=== PATIENT | male | born 1990 | race Caucasian/White ===

== ENCOUNTER 2020-03-03 14:13 | Inpatient (IN) | payer MEDICAID ==
[~2020-03-03] VITALS: Ht 180.3 cm; Wt 108.6 kg
[2020-03-03] MEDS ORDERED: ACETAMINOPHEN 325 MG TABLET PO PRN (15:45)
[2020-03-03] MEDS ORDERED: MAG HYDROX/AL HYDROX/SIMETH ES 30 ML SUSPENSION UDCUP PO PRN (15:45)
[2020-03-03] MEDS ORDERED: PROMETHAZINE HCL 25 MG TABLET PO PRN (15:45)
[2020-03-03] MEDS ORDERED: LOPERAMIDE HCL 2 MG CAPSULE PO PRN (15:45)
[2020-03-03] MEDS ORDERED: TUBERCULIN, PURIFIED PROTEIN DERIVATIVE 5 TU/0.1 ML SYRINGE ID ONE (15:45)
[2020-03-03] MEDS ORDERED: HydrOXYzine PAMOATE 50 MG CAPSULE PO PRN (15:45)
[2020-03-03] MEDS ORDERED: GuaiFENesin/D-METHORPHAN [SUGAR-FREE] 200-20MG/10 ML SYRUP UDCUP PO PRN (15:45)
[2020-03-03] MEDS ORDERED: ZOLPIDEM TARTRATE 10 MG TABLET PO PRN (15:45)
[2020-03-03] MEDS ORDERED: OLANZapine 5 MG RAPDIS TABLET PO PRN (15:45)
[2020-03-03] MEDS ORDERED: MAGNESIUM HYDROXIDE SUSPENSION 30 ML UDCUP PO PRN (15:45)
[2020-03-03 16:23] VITALS: BP 144/87
[2020-03-03] MEDS: THIAMINE 100 MG TABLET PO SCH (18:04)
[2020-03-03] MEDS: LORazepam 2 MG TABLET PO PRN (18:04)
[2020-03-03] MEDS: ZIPRASIDONE HCL 40 MG CAPSULE PO SCH (18:34)
[2020-03-03] MEDS ORDERED: OLANZapine 5 MG RAPDIS TABLET PO SCH (21:00)
[2020-03-03] MEDS: LamoTRIgine 100 MG TABLET PO SCH (21:06)
[2020-03-03] MEDS: DiphenhydrAMINE HCL 25 MG CAPSULE PO SCH (21:06)
[2020-03-03 22:17] VITALS: BP 115/63
[2020-03-04 03:40] VITALS: BP 112/72
[2020-03-04] MEDS: ZIPRASIDONE HCL 40 MG CAPSULE PO SCH ×2 (06:46→17:01)
[2020-03-04 08:02] LABS: BASOPHILS % (AUTO) 0.5 % (0.0-2.0); EOSINOPHILS % (AUTO) 2.4 % (1.0-6.0); HEMATOCRIT 45.9 % (41-53); HEMOGLOBIN 15.5 g/dL (13.5-17.5); LYMPHOCYTES # (AUTO) 2.6 K/uL (1.0-4.8); MEAN CORPUSCULAR HGB CONC 33.7 G/dL (31.0-37.0); MEAN CORPUSCULAR VOLUME 86 fL (80-100); MONOCYTES # (AUTO) 0.7 K/uL (0.1-1.0); MONOCYTES % (AUTO) 8.8 % (2.0-9.0); NEUTROPHILS % (AUTO) 53.3 % (40.0-70.0); PLATELET COUNT (AUTO) 323 K/uL (150-450); RED BLOOD CELL COUNT(AUTO) 5.34 MIL/uL (4.50-5.90); RED CELL DISTRIBUTION WIDTH 13.1 % (11.5-14.5)
[2020-03-04 08:11] LABS: HEMOGLOBIN A1C 5.4 % (3.8-5.6)
[2020-03-04 08:29] LABS: ALANINE AMINOTRANSFERASE 27 U/L (12-78); ALBUMIN 4.8 g/dL (3.4-5.0); ALKALINE PHOSPHATASE 70 U/L (46-116); ANION GAP 7 mmol/L (8-16); ASPARTATE AMINOTRANSFERASE 14 U/L (15-37); BILIRUBIN,TOTAL 0.4 mg/dL (0.1-1.0); CALCIUM, TOTAL 9.5 mg/dL (8.8-10.5); CARBON DIOXIDE 26 mmol/L (22-29); CHLORIDE 103 mmol/L (98-107); CHOL/HDL RATIO 3.5 (4.2-7.3); CHOLESTEROL 163 mg/dL (131-200); CREATININE 0.94 mg/dL (0.60-1.30); FREE T4 (FREE THYROXINE) 1.43 ng/dL (0.76-1.46); GLOMERULAR FILTR. RATE CALC > 60 mL/min (>60); GLUCOSE,RANDOM 100 mg/dL (70-110); HDL CHOLESTEROL 47 mg/dL (40-60); LDL CHOL (CALC.) 102 mg/dL (0-130); POTASSIUM 3.6 mmol/L (3.5-5.1); SODIUM SERUM 136 mmol/L (136-145); THYROID STIMULATING HORMONE 0.65 uIU/mL (0.36-3.74); TOTAL PROTEIN, SERUM 8.2 g/dL (6.4-8.2); TRIGLYCERIDES 68 mg/dL (15-150); UREA NITROGEN, BLOOD 13 mg/dL (7-18)
[2020-03-04] MEDS: THIAMINE 100 MG TABLET PO SCH ×2 (08:43→17:01)
[2020-03-04] MEDS: BuPROPion HCL XL 150 MG ER TABLET PO SCH (08:43)
[2020-03-04] MEDS: FOLIC ACID 1 MG TABLET PO SCH (08:43)
[2020-03-04] MEDS: MULTIVITAMINS WITH MINERALS, THERAPEUTIC TABLET PO SCH (08:43)
[2020-03-04] MEDS ORDERED: CITALOPRAM HYDROBROMIDE 20 MG TABLET PO SCH (09:00)
[2020-03-04] MEDS ORDERED: CITALOPRAM HYDROBROMIDE 10 MG TABLET PO SCH (09:00)
[2020-03-04 13:02] VITALS: BP 108/68
[2020-03-04 16:26] VITALS: BP 126/89
[2020-03-04] MEDS: LORazepam 2 MG TABLET PO PRN (17:14)
[2020-03-04] MEDS: DiphenhydrAMINE HCL 25 MG CAPSULE PO SCH (21:00)
[2020-03-04] MEDS: LamoTRIgine 100 MG TABLET PO SCH (21:01)
[2020-03-05 05:31] VITALS: BP 130/94
[2020-03-05] MEDS: ZIPRASIDONE HCL 40 MG CAPSULE PO SCH ×2 (06:25→16:20)
[2020-03-05] MEDS: MULTIVITAMINS WITH MINERALS, THERAPEUTIC TABLET PO SCH (08:22)
[2020-03-05] MEDS: BuPROPion HCL XL 150 MG ER TABLET PO SCH (08:22)
[2020-03-05] MEDS: THIAMINE 100 MG TABLET PO SCH ×2 (08:22→16:40)
[2020-03-05] MEDS: FOLIC ACID 1 MG TABLET PO SCH (08:22)
[2020-03-05] MEDS: CITALOPRAM HYDROBROMIDE 20 MG TABLET PO SCH (08:23)
[2020-03-05 09:24] VITALS: BP 135/87
[2020-03-05 16:00] VITALS: BP 135/88
[2020-03-05] MEDS ORDERED: ZIPRASIDONE HCL 60 MG CAPSULE PO SCH (17:00)
[2020-03-05] MEDS: DiphenhydrAMINE HCL 25 MG CAPSULE PO SCH (20:21)
[2020-03-05] MEDS: LamoTRIgine 100 MG TABLET PO SCH (20:21)
[2020-03-06 06:26] VITALS: BP 136/84
[2020-03-06] MEDS ORDERED: ZIPRASIDONE HCL 60 MG CAPSULE PO SCH (07:00)
[2020-03-06 08:13] VITALS: BP 145/80
[2020-03-06] MEDS: FOLIC ACID 1 MG TABLET PO SCH (08:38)
[2020-03-06] MEDS: THIAMINE 100 MG TABLET PO SCH ×2 (08:38→16:12)
[2020-03-06] MEDS: BuPROPion HCL XL 150 MG ER TABLET PO SCH (08:38)
[2020-03-06] MEDS: MULTIVITAMINS WITH MINERALS, THERAPEUTIC TABLET PO SCH (08:39)
[2020-03-06] MEDS: CITALOPRAM HYDROBROMIDE 20 MG TABLET PO SCH (08:39)
[2020-03-06 16:12] VITALS: BP 135/73
[2020-03-06] MEDS: DiphenhydrAMINE HCL 25 MG CAPSULE PO SCH (20:20)
[2020-03-06] MEDS: LamoTRIgine 100 MG TABLET PO SCH (20:20)
[2020-03-07 01:15] VITALS: BP 128/87
[2020-03-07] MEDS: LORazepam 2 MG TABLET PO PRN (04:47)
[2020-03-07 08:05] VITALS: BP 125/60
[2020-03-07] MEDS: MULTIVITAMINS WITH MINERALS, THERAPEUTIC TABLET PO SCH (08:25)
[2020-03-07] MEDS: FOLIC ACID 1 MG TABLET PO SCH (08:25)
[2020-03-07] MEDS: THIAMINE 100 MG TABLET PO SCH (08:25)
[2020-03-07] MEDS: BuPROPion HCL XL 150 MG ER TABLET PO SCH (08:26)
[2020-03-07] MEDS ORDERED: DIPH25 PO (14:42)
[2020-03-07] MEDS ORDERED: ZIPR80CA2 PO (14:42)
[2020-03-07] MEDS ORDERED: BUPR-47 PO (14:42)
[2020-03-07] MEDS ORDERED: LAMO100 PO (14:42)
[2020-03-07] MEDS ORDERED: ZIPRASIDONE HCL 80 MG CAPSULE PO SCH (17:00)
== END 2020-03-07 15:30 | disposition home or self-care (01) | DRG 750 ==
LOC: B2S 15:16
PROVIDERS: ADMIT Psychiatry & Neurology Psychiatry; ATTEND Psychiatry & Neurology Psychiatry
DX: F25.9 Schizoaffective disorder, unspecified (principal); Z91.19 Patient's noncompliance with other medical treatment and regimen; Z03.818 Encounter for observation for suspected exposure to other biological agents ruled out
CPT/HCPCS: 83036; 84439; 84443; 86592

== ENCOUNTER 2020-06-10 11:51 | Emergency (ER) | payer MEDICAID, OTHER ==
[~2020-06-10] VITALS: Ht 177.8 cm; Wt 104.5 kg
[~2020-06-10 11:51] MED LIST: BUPR-47 PO; DIPH25 PO; LAMO100 PO; ZIPR80CA2 PO
[2020-06-10 14:15] VITALS: BP 120/77
== END 2020-06-10 14:42 | disposition home or self-care (01) ==
LOC: EMS 11:52
DX: F20.9 Schizophrenia, unspecified (principal); F31.9 Bipolar disorder, unspecified; Z79.899 Other long term (current) drug therapy; Z11.59 Encounter for screening for other viral diseases
CPT/HCPCS: Z7502

== ENCOUNTER 2020-09-17 08:19 | Emergency (ER) | payer OTHER ==
[~2020-09-17] VITALS: Ht 177.8 cm; Wt 121.8 kg
[2020-09-17 08:21] VITALS: BP 141/113
[2020-09-17] MEDS ORDERED: RISPC25 IM (08:27)
[2020-09-17] MEDS ORDERED: LAMO100 PO (08:27)
[2020-09-17] MEDS ORDERED: DIPH25CA48 PO (08:27)
[2020-09-17] MEDS ORDERED: CITA-144 PO (08:27)
[2020-09-17] MEDS ORDERED: QUET200T PO (08:27)
[2020-09-17 09:56] LABS: COVID AG,FIA SOURCE NASOPHARYNGEAL
== END 2020-09-17 10:10 | disposition home or self-care (01) ==
LOC: EMS 08:27
DX: R44.0 Auditory hallucinations (principal); F31.9 Bipolar disorder, unspecified; Z20.828 Contact with and (suspected) exposure to other viral communicable diseases
CPT/HCPCS: 87426; 99283; C9803

== ENCOUNTER 2020-09-17 11:45 | Inpatient (IN) | payer MEDICAID ==
[~2020-09-17] VITALS: Ht 177.8 cm; Wt 120.8 kg
[~2020-09-17 11:45] MED LIST changes: +CITA-144 PO; +DIPH25CA48 PO; +QUET200T PO; +RISPC25 IM
[2020-09-17] MEDS ORDERED: ZOLPIDEM TARTRATE 10 MG TABLET PO PRN (13:00)
[2020-09-17 16:30] VITALS: BP 121/82
[2020-09-17] MEDS: LORazepam 2 MG TABLET PO PRN (16:34)
[2020-09-17] MEDS: HALOPERIDOL 5 MG TABLET PO PRN (16:34)
[2020-09-18] MEDS: LORazepam 2 MG TABLET PO PRN ×3 (03:44→16:36)
[2020-09-18 04:30] VITALS: BP 133/76
[2020-09-18 06:33] VITALS: BP 136/92
[2020-09-18 07:22] LABS: BASOPHILS % (AUTO) 0.3 % (0.0-2.0); EOSINOPHILS % (AUTO) 6.1 % (1.0-6.0); HEMATOCRIT 42.2 % (41-53); HEMOGLOBIN 14.4 g/dL (13.5-17.5); LYMPHOCYTES # (AUTO) 2.3 K/uL (1.0-4.8); LYMPHOCYTES % (AUTO) 32.1 % (22.0-44.0); MEAN CORPUSCULAR HEMOGLOBIN 30.2 pg (26.0-34.0); MEAN CORPUSCULAR HGB CONC 34.1 G/dL (31.0-37.0); MEAN CORPUSCULAR VOLUME 89 fL (80-100); MONOCYTES # (AUTO) 0.5 K/uL (0.1-1.0); MONOCYTES % (AUTO) 7.4 % (2.0-9.0); NEUTROPHILS # (AUTO) 3.8 K/uL (1.8-7.7); NEUTROPHILS % (AUTO) 54.1 % (40.0-70.0); PLATELET COUNT (AUTO) 344 K/uL (150-450); RED BLOOD CELL COUNT(AUTO) 4.77 MIL/uL (4.50-5.90); RED CELL DISTRIBUTION WIDTH 14.6 % (11.5-14.5)
[2020-09-18 07:28] LABS: HEMOGLOBIN A1C 5.3 % (3.8-5.6)
[2020-09-18] MEDS ORDERED: LOPERAMIDE HCL 2 MG CAPSULE PO PRN (07:30)
[2020-09-18] MEDS ORDERED: IBUPROFEN 400 MG TABLET PO PRN (07:30)
[2020-09-18] MEDS ORDERED: ONDANSETRON HCL 4 MG TABLET PO PRN (07:30)
[2020-09-18] MEDS ORDERED: ACETAMINOPHEN 325 MG TABLET PO PRN (07:30)
[2020-09-18] MEDS ORDERED: MAGNESIUM HYDROXIDE SUSPENSION 30 ML UDCUP PO PRN (07:30)
[2020-09-18] MEDS ORDERED: GuaiFENesin/D-METHORPHAN [SUGAR-FREE] 200-20MG/10 ML SYRUP UDCUP PO PRN (07:30)
[2020-09-18] MEDS ORDERED: ALBUTEROL SULFATE HFA 90 MCG/PUFF 8 GM INHALER IH PRN (07:30)
[2020-09-18] MEDS ORDERED: DOCUSATE SODIUM 100 MG CAPSULE PO PRN (07:30)
[2020-09-18] MEDS ORDERED: PETROLATUM,WHITE 28 GM JELLY TP PRN (07:30)
[2020-09-18] MEDS ORDERED: NICOTINE 14 MG/24 HOUR PATCH TD PRN (07:30)
[2020-09-18] MEDS ORDERED: CloNIDine HCL 0.1 MG TABLET PO PRN (07:30)
[2020-09-18] MEDS ORDERED: MAG HYDROX/AL HYDROX/SIMETH ES 30 ML SUSPENSION UDCUP PO PRN (07:30)
[2020-09-18 08:30] VITALS: BP 132/85
[2020-09-18 08:30] LABS: ALANINE AMINOTRANSFERASE 33 U/L (12-78); ALBUMIN 4.6 g/dL (3.4-5.0); ALKALINE PHOSPHATASE 86 U/L (46-116); ANION GAP 7 mmol/L (8-16); ASPARTATE AMINOTRANSFERASE 19 U/L (15-37); BILIRUBIN,TOTAL 0.3 mg/dL (0.1-1.0); CALCIUM, TOTAL 9.6 mg/dL (8.8-10.5); CARBON DIOXIDE 26 mmol/L (22-29); CHLORIDE 102 mmol/L (98-107); CHOL/HDL RATIO 4.6 (4.2-7.3); CHOLESTEROL 224 mg/dL (131-200); CREATININE 0.82 mg/dL (0.60-1.30); GLOMERULAR FILTR. RATE CALC > 60 mL/min (>60); GLUCOSE,RANDOM 104 mg/dL (70-110); HDL CHOLESTEROL 49 mg/dL (40-60); LDL CHOL (CALC.) 149 mg/dL (0-130); POTASSIUM 4.5 mmol/L (3.5-5.1); SODIUM SERUM 135 mmol/L (136-145); THYROID STIMULATING HORMONE 0.86 uIU/mL (0.36-3.74); TRIGLYCERIDES 131 mg/dL (15-150); UREA NITROGEN, BLOOD 12 mg/dL (7-18)
[2020-09-18] MEDS: LamoTRIgine 100 MG TABLET PO SCH (08:36)
[2020-09-18] MEDS: CITALOPRAM HYDROBROMIDE 20 MG TABLET PO SCH (08:36)
[2020-09-18] MEDS ORDERED: QUEtiapine FUMARATE 200 MG TABLET PO SCH (09:00)
[2020-09-18] MEDS: HALOPERIDOL 5 MG TABLET PO PRN ×2 (10:18→16:36)
[2020-09-18 16:10] VITALS: BP 129/76
[2020-09-18] MEDS: OLANZapine 5 MG TABLET PO SCH (16:36)
[2020-09-19] MEDS: HALOPERIDOL 5 MG TABLET PO PRN ×2 (04:29→12:11)
[2020-09-19] MEDS: LORazepam 2 MG TABLET PO PRN ×3 (04:29→13:15)
[2020-09-19 04:30] VITALS: BP 123/67
[2020-09-19 08:06] VITALS: BP 126/84
[2020-09-19] MEDS: LamoTRIgine 100 MG TABLET PO SCH (09:07)
[2020-09-19] MEDS: CITALOPRAM HYDROBROMIDE 20 MG TABLET PO SCH (09:07)
[2020-09-19] MEDS: OLANZapine 5 MG TABLET PO SCH ×2 (09:07→18:37)
[2020-09-19 16:29] VITALS: BP 131/82
[2020-09-20 02:30] VITALS: BP 110/69
[2020-09-20] MEDS: LORazepam 2 MG TABLET PO PRN (05:08)
[2020-09-20] MEDS: OLANZapine 5 MG TABLET PO SCH (08:48)
[2020-09-20] MEDS: CITALOPRAM HYDROBROMIDE 20 MG TABLET PO SCH (08:48)
[2020-09-20] MEDS: LamoTRIgine 100 MG TABLET PO SCH (08:48)
[2020-09-20 10:45] VITALS: BP 127/76
[2020-09-20] MEDS ORDERED: OLAN5TAB2 PO (12:28)
[2020-09-20] MEDS: HALOPERIDOL 5 MG TABLET PO PRN (12:58)
== END 2020-09-20 13:15 | disposition home or self-care (01) | DRG 750 ==
LOC: B3A 13:54
PROVIDERS: ADMIT Psychiatry & Neurology Psychiatry; ATTEND Psychiatry & Neurology Psychiatry
DX: F25.9 Schizoaffective disorder, unspecified (principal); E87.1 Hypo-osmolality and hyponatremia; I10 Essential (primary) hypertension; D72.829 Elevated white blood cell count, unspecified; R73.9 Hyperglycemia, unspecified; E78.5 Hyperlipidemia, unspecified; F41.9 Anxiety disorder, unspecified
CPT/HCPCS: 83036; 84436; 84439; 84443